=== PATIENT | male | born 1965 | race African-American/Black ===

== ENCOUNTER 2019-03-28 17:51 | Emergency (ER) | payer OTHER, SELFPAY ==
--- NOTE | 2019-03-28 18:06 | ED.GENADULT ---
HPI - General Adult General Chief complaint: Upper Respiratory Infection Stated complaint: cough/sweats Time Seen by Provider: 03/28/19 18:17 Source: patient Mode of arrival: ambulatory Limitations: no limitations History of Present Illness HPI narrative: 54-year-old male patient presents to the [facility] with complaints of a cough for the past 3 to 4 days. Patient states that at times he is short of breath with the coughing. Patient states that the coughing is worse when he lays down at night. Denies any fevers, ear pain, runny nose, stuffy nose, sore throat or chest pain. Patient states that he did not get a flu shot this year. Patient states he has been taking some [id number] Robitussin for symptoms which has helped at times. Patient does admit to being an active smoker. Related Data Allergies Allergy/AdvReac Type Severity Reaction Status Date / Time No Known Allergies Allergy Verified 03/28/19 18:15 Review of Systems Review of Systems: Narrative: CONSTITUTIONAL: Denies fever, chills, or sweats. EYES: Denies visual changes, redness, or discharge. ENT: Denies rhinorrhea, congestion, sore throat, or otalgia. CARDIOVASCULAR: Denies chest pain, palpitations, or edema. RESPIRATORY: Positive cough with dyspnea at time. GASTROINTESTINAL: Denies abdominal pain, nausea, vomiting, or diarrhea. GENITOURINARY: Denies dysuria or hematuria. SKIN: Denies rash or itching. MUSCULOSKELETAL: Denies back pain, joint pain, or myalgia. NEUROLOGIC: Denies headache, numbness, or weakness. PSYCHIATRIC: Denies anxiety or depression. [facility] Social History Social History Gender identity (if verbalized by the patient): Male Comments At the time of my signature I agree with nursing past medical history, surgical, social, and family history. There is no relevant family history pertinent to the presenting complaint. Exam Narrative: Exam Narrative: GENERAL: Well-appearing, well-nourished, and in no acute distress. HEAD: Normocephalic, atraumatic. No tenderness noted to frontal maxillary sinuses on palpation. EYES: PERRLA and EOMI. ENT: Nares clear, no rhinorrhea or epistaxis. Mucous membranes moist. Posterior pharynx with no erythema, tonsillar margin, exudates or lesions present. Bilateral TMs are clear no erythema or foreign bodies in the canal. NECK: Supple. No lymphadenopathy CHEST: Patient has slight rhonchi noted bilateral upper lobes on auscultation. No respiratory distress. Patient able talk in clear complete sentences. Not tripoding noted. HEART: Regular rate and rhythm. No murmur heard. Normal peripheral pulses. ABDOMEN: Soft, nontender, nondistended, normal active bowel sounds. EXTREMITIES: Normal range of motion. No edema. SKIN: Warm, dry, no rash. NEURO: No focal deficits. Alert and oriented x3. Course Vital Signs Vital signs: Vital Signs Temperature 37.2 C 03/28/19 18:20 Pulse Rate 89 03/28/19 18:20 Respiratory Rate 20 03/28/19 18:20 Blood Pressure 185/84 H 03/28/19 18:20 Pulse Oximetry 98 03/28/19 18:20 Temperature 37.2 C 03/28/19 18:20 Pulse Rate 89 03/28/19 18:20 Respiratory Rate 20 03/28/19 18:20 Blood Pressure 185/84 H 03/28/19 18:20 Pulse Oximetry 98 03/28/19 18:20 Vital signs reviewed. Medical Decision Making Differential Diagnosis Differential Diagnosis: Differential diagnosis: Allergic rhinitis, chronic sinusitis, tonsillitis, acute sinusitis, infectious mononucleosis, seasonal influenza, pertussis, diphtheria, meningococcal disease, viral syndrome, viral bronchitis, RSV. Discussed with patient that I think that most likely his symptoms are due to possibly some sinus drainage since his cough is worse when he lays down at night. Discussed with patient he can continue taking [id number] medication I will also prescribe him a daily antihistamine and nasal steroid. Discussed with him that since he is an active smoker a
[2019-03-28 18:20] VITALS: BP 185/84; PULSE 89; RESP 20; TEMP 37.2; O2SAT 98
== END 2019-03-28 18:32 | disposition home or self-care (01) ==
PROVIDERS: Emergency Provider Nurse Practitioner Family
DX: J06.9 Acute upper respiratory infection, unspecified (principal)
CPT/HCPCS: 99203; G0463

== ENCOUNTER 2019-05-04 13:06 | Emergency (ER) | payer OTHER, SELFPAY ==
[2019-05-04 13:19] VITALS: BP 175/90; PULSE 94; RESP 20; TEMP 37.1; O2SAT 100
--- NOTE | 2019-05-04 13:34 | ED.SKABFB ---
HPI - Skin/Abscess/Foreign Bdy General Chief complaint: Skin/Abscess/Foreign Body Stated complaint: pos boil Time Seen by Provider: 05/04/19 13:35 Source: patient and RN notes reviewed Mode of arrival: ambulatory Limitations: no limitations History of Present Illness HPI narrative: 54-year-old male who presents to [facility] care with 10-day history of boil to his back with noted tenderness and drainage from wound to his lower back which he states started draining purulent drainage today.Patient states that he has had a previous boil on his back which was on the upper back area. Patient denies any fevers, chills, or sweats, lesion 0.5cm diameter draining lesion with 1cm surrounding swelling with induration of tissue which is painful to palpation. MD complaint: abscess/boil Onset (ago): day(s) (10) Location: back Severity: moderate Severity scale (1-10): 5 Quality: aching Pain Consistency: constant Relieving factors: none Exacerbating factors: palpation Context: none Associated symptoms: other (tenderness to site) Treatments prior to arrival: other (washed with peroxide and covered with bandaid) Related Data Allergies Allergy/AdvReac Type Severity Reaction Status Date / Time No Known Allergies Allergy Verified 05/04/19 13:18 Review of Systems Review of Systems: Narrative: CONSTITUTIONAL: Denies fever, chills, or sweats. EYES: Denies visual changes, redness, or discharge. ENT: Denies rhinorrhea, congestion, sore throat, or otalgia. CARDIOVASCULAR: Denies chest pain, palpitations, or edema. RESPIRATORY: Denies cough or dyspnea. GASTROINTESTINAL: Denies abdominal pain, nausea, vomiting, or diarrhea. GENITOURINARY: Denies dysuria or hematuria. SKIN: boil to lower back which is draining purulent drainage with indurated tissue MUSCULOSKELETAL: Denies back pain, joint pain, or myalgia. NEUROLOGIC: Denies headache, numbness, or weakness. PSYCHIATRIC: Denies anxiety or depression. All systems reviewed & are unremarkable except as noted in HPI and below PMFSH Past Medical History Medical History (Updated 05/04/19 @ 14:28 by Delaney Gagnon NP) Boil Hypertension Social History Social History (Updated 05/04/19 @ 14:33 by Delaney Gagnon NP) Smoking status: Smoker, status unknown Living arrangements: with family Gender identity (if verbalized by the patient): Male Comments At time of signature, agree with nursing past medical, social history. There is no relevant family history pertinent to the presenting complaint Exam Narrative: Exam Narrative: GENERAL: Well-appearing, well-nourished, and in no acute distress. HEAD: Normocephalic, atraumatic. EYES: PERRLA and EOMI. ENT: Nares clear, no rhinorrhea or epistaxis. Mucous membranes moist. NECK: Supple.no lymphadenopathy CHEST: Clear to auscultation. No respiratory distress.SAO2 100% on room air HEART: Regular rate and rhythm. No murmur heard. Normal peripheral pulses. ABDOMEN: Soft, non tender, non distended, normal active bowel sounds. EXTREMITIES: Normal range of motion. No edema. SKIN: Warm, 0.5cm purulent draining lesion with 1cm swollen indurated tissue around draining center NEURO: No focal deficits. Alert and oriented x3. Course Vital Signs Vital signs: Vital Signs Temperature 37.1 C 05/04/19 13:19 Pulse Rate 94 05/04/19 13:19 Respiratory Rate 20 05/04/19 13:19 Blood Pressure 175/90 H 05/04/19 13:19 Pulse Oximetry 100 05/04/19 13:19 Temperature 37.1 C 05/04/19 13:19 Pulse Rate 94 05/04/19 13:19 Respiratory Rate 20 05/04/19 13:19 Blood Pressure 175/90 H 05/04/19 13:19 Pulse Oximetry 100 05/04/19 13:19 MDM - Skin/Abscess/Foreign Bdy Differential Diagnosis Differential diagnosis: Likely abscess of skin or subcutaneous tissue, cellulitis, contact dermatitis and other (purulent wound drainage) Medical Records Attestation: I reviewed the patient's medical records. Critical Care Time Critical Care Time Critical Care [place]
[2019-05-04 14:25] VITALS: BP 166/88
== END 2019-05-04 14:08 | disposition home or self-care (01) ==
PROVIDERS: Emergency Provider Registered Nurse
DX: L02.212 Cutaneous abscess of back [any part, except buttock and flank] (principal); I10 Essential (primary) hypertension
CPT/HCPCS: 99213; G0463

== ENCOUNTER 2022-07-18 15:24 | Emergency (ER) | payer OTHER, SELFPAY ==
[2022-07-18 15:44] VITALS: BP 131/77; PULSE 93; RESP 18; TEMP 36.2; O2SAT 99
--- NOTE | 2022-07-18 17:00 | ED.SKABFB ---
HPI - Skin/Abscess/Foreign Bdy General Chief complaint: Skin/Abscess/Foreign Body Stated complaint: abscess Time Seen by Provider: 07/18/22 16:43 History of Present Illness HPI narrative: 57-year-old male reports for evaluation of a lump to his right mandible x3 months. Patient states he noticed an ingrown hair in that area approximately 3 months ago, pulled it and since then he developed a lump. States it is slowly gotten bigger which is what brought him here today. Denies warmth, pain, fever, bodyaches, chills, erythema. Related Data Allergies Allergy/AdvReac Type Severity Reaction Status Date / Time No Known Allergies Allergy Verified 05/28/19 13:27 Review of Systems Review of Systems: CONSTITUTIONAL: Denies fever, chills EYES: Denies visual changes, redness, or discharge. ENT: Denies rhinorrhea, congestion, sore throat, or otalgia. CARDIOVASCULAR: Denies chest pain, palpitations, or edema. RESPIRATORY: Denies cough or dyspnea. GASTROINTESTINAL: Denies abdominal pain, nausea, vomiting, or diarrhea. GENITOURINARY: Denies dysuria or hematuria. SKIN: See HPI MUSCULOSKELETAL: Denies back pain, joint pain, or myalgia. NEUROLOGIC: Denies headache, numbness, dizziness, or weakness. PSYCHIATRIC: Denies anxiety or depression. [facility], [facility] Past Medical History Medical History Boil Hypertension Social History Social History Smoking status: Smoker, status unknown Living arrangements: with family Gender identity (if verbalized by the patient): Male Exam Narrative: GENERAL: Well-appearing, in no acute distress. HEAD: Normocephalic EYES: PERRLA CHEST: No respiratory distress. Clear to auscultation, no adventitious breath sounds. HEART: Regular rate and rhythm. No murmur heard. Normal peripheral pulses. EXTREMITIES: Normal range of motion. No edema. SKIN: 1 cm mobile cyst to right maxilla. No tenderness, erythema or warmth. NEURO: No focal deficits. Alert and oriented x3. PSYCH: Normal mood and affect. Course Vital Signs Vital signs: Vital Signs Temperature 97.2 F L 07/18/22 15:44 Pulse Rate 93 07/18/22 15:44 Respiratory Rate 18 07/18/22 15:44 Blood Pressure 131/77 07/18/22 15:44 Pulse Oximetry 99 07/18/22 15:44 Oxygen Delivery Room Air 07/18/22 15:44 Temperature 97.2 F L 07/18/22 15:44 Pulse Rate 93 07/18/22 15:44 Respiratory Rate 18 07/18/22 15:44 Blood Pressure 131/77 07/18/22 15:44 Pulse Oximetry 99 07/18/22 15:44 Oxygen Delivery Room Air 07/18/22 15:44 MDM - Skin/Abscess/Foreign Bdy MDM Narrative Medical decision making narrative: 57-year-old male reports for evaluation of a 1 cm mobile cyst to his right maxilla without erythema, warmth, drainage x3 months. Vital stable, he is afebrile. Bedside ultrasound obtained to evaluate lipoma versus cyst which reveals fluid in the cavity. Advised patient that I do not want to I&D it while in the ED as there is no signs of infection and it is on his face. Encouraged him to follow-up with plastic surgery for removal. Plastics referral provided. Strict ED return precautions discussed. Patient agrees with plan verbalized understanding. Discharged in stable condition. Discharge Plan Discharge Clinical Impression: Cyst of face Patient Disposition: Home, Self-Care Condition: Stable Instructions: Antibiotic Form, Cyst (ED) Additional Instructions: Your evaluated in the emergency department for a cyst on her face. Please follow-up with plastic surgery for further evaluation and removal. Return to the emergency department if you experience increased pain, warmth, redness, fever as these are concerning signs of infection. Prescriptions: No Action mupirocin 2 % ointment 1 applic TOPICAL TID Qty: 30 0RF sulfamethoxazole-trimethoprim [Bactrim DS] 800-160 mg tablet 1 tablet PO
== END 2022-07-18 17:22 | disposition home or self-care (01) ==
PROVIDERS: Emergency Provider Physician Assistant
DX: L72.9 Follicular cyst of the skin and subcutaneous tissue, unspecified (principal)
CPT/HCPCS: 99281

== ENCOUNTER 2022-09-07 09:22 | Emergency (ER) | payer OTHER, SELFPAY ==
[2022-09-07 09:40] VITALS: BP 183/89; PULSE 92; RESP 16; TEMP 36.1; O2SAT 100
--- NOTE | 2022-09-07 10:33 | ED.GENADULT ---
HPI - General Adult General Chief complaint: Dental/Oral Stated complaint: cyst on face, dental pain Time Seen by Provider: 09/07/22 09:44 History of Present Illness HPI narrative: Rex Yang is a 57 y/o male who presents today for a right upper dental infection. He states he was here about a month ago for the same issue and was referred to a plastic surgeon then to have an area on his face opened and drained that is adjacent to his dental infection. He states that he missed his appointment but did get another appointment and was instructed to come to the ED to get started on antibiotics. He does not wish for the area on his face to be drained here today, he would like to follow up with plastics as scheduled. He would like to get started on antibiotics. Denies fever/chills/difficulty swallowing/shortness of breath/chest pain. Related Data Allergies Allergy/AdvReac Type Severity Reaction Status Date / Time No Known Allergies Allergy Verified 09/07/22 09:42 Review of Systems Review of Systems: CONSTITUTIONAL: Denies fever, chills, or sweats. EYES: Denies visual changes, redness, or discharge. ENT: Denies rhinorrhea, congestion, sore throat,complains of right upper toothache and cyst/abscess to right upper cheek. CARDIOVASCULAR: Denies chest pain, palpitations, or edema. RESPIRATORY: Denies cough or dyspnea. GASTROINTESTINAL: Denies abdominal pain, nausea, vomiting, or diarrhea. GENITOURINARY: Denies dysuria or hematuria. SKIN: Denies rash or itching. MUSCULOSKELETAL: Denies back pain, joint pain, or myalgia. NEUROLOGIC: Denies headache, numbness, dizziness, or weakness. PSYCHIATRIC: Denies anxiety or depression. PMFSH Past Medical History Medical History Boil Hypertension Social History Social History Smoking status: Smoker, status unknown Living arrangements: with family Gender identity (if verbalized by the patient): Male Exam Narrative: GENERAL: Well-appearing, well-nourished, and in no acute distress. HEAD: Normocephalic, atraumatic. EYES: PERRLA and EOMI. ENT: Nares clear, no rhinorrhea or epistaxis. Mucous membranes moist. Oropharynx without tonsillar hypertrophy exudate or other lesions. Right upper cheek noted to have swelling/ induration that he is following up with plastics to have removed. NECK: Supple. No adenopathy or masses. No carotid bruits or JVD CHEST: Clear to auscultation. No respiratory distress. No wheezes rales or rhonchi HEART: Regular rate and rhythm. No murmur heard. Normal peripheral pulses. ABDOMEN: Soft, nontender, nondistended, normal active bowel sounds. EXTREMITIES: Normal range of motion. No edema. SKIN: Warm, dry, no rash. NEURO: No focal deficits. Alert and oriented x3. PSYCH: Normal mood and affect. Course Vital Signs Vital signs: Vital Signs Temperature 36.1 C L 09/07/22 09:40 Pulse Rate 92 09/07/22 09:40 Respiratory Rate 16 09/07/22 09:40 Blood Pressure 183/89 H 09/07/22 09:40 Pulse Oximetry 100 09/07/22 09:40 Oxygen Delivery Room Air 09/07/22 09:40 Temperature 36.1 C L 09/07/22 09:40 Pulse Rate 92 09/07/22 09:40 Respiratory Rate 16 09/07/22 09:40 Blood Pressure 183/89 H 09/07/22 09:40 Pulse Oximetry 100 09/07/22 09:40 Oxygen Delivery Room Air 09/07/22 09:40 Medical Decision Making MDM Narrative Medical decision making narrative: Area to right upper cheek is noted to be swollen/indurated no active drainage. Right upper tooth decay noted on exam with out any palpable fluctuance noted near tooth to be drained Patient is not exhibiting any systemic symptoms of infection. He is requesting to be started on antibiotics before his follow up with plastics. Differential Diagnosis Differential Diagnosis: dental infection/ dental abscess/ facial abscess/ cellulitis. Medical Records Medical records reviewed:
[2022-09-07] MEDS: LIDOCAINE HCL 2% VISC SOLN 15 ML UDC PO (10:57)
[2022-09-07] MEDS: HYDROcodone/acetaminophen (*CRX) 5-325 MG TABLET 1 TAB PO (10:57)
[2022-09-07] MEDS: PENICILLIN V POTASSIUM 250 MG TABLET 500 MG PO (10:58)
[2022-09-07] MEDS: KETOROLAC 30 MG/ML VIAL (*BKC) IM (10:58)
== END 2022-09-07 11:06 | disposition home or self-care (01) ==
PROVIDERS: Emergency Provider Nurse Practitioner Family; PCP Physician Assistant
DX: K04.7 Periapical abscess without sinus (principal); I10 Essential (primary) hypertension
CPT/HCPCS: 96372; 99283; A9270; J1885

== ENCOUNTER 2022-09-08 09:27 | Emergency (ER) | payer OTHER, SELFPAY ==
[2022-09-08 09:28] VITALS: BP 179/80; PULSE 94; RESP 18; TEMP 36.7; O2SAT 100
[2022-09-08] MEDS: MORPHINE SULFATE (*CRX) 4 MG/ML INJ IV PUSH (10:07)
--- NOTE | 2022-09-08 10:32 | ED.GENADULT ---
HPI - General Adult General Chief complaint: Skin/Abscess/Foreign Body Stated complaint: facial swelling Time Seen by Provider: 09/08/22 09:37 History of Present Illness HPI narrative: Rex Yang is a 57 y/o male who presents today for the third time to the ED for this same complaint of right facial cyst/ abscess area. He was evaluated here yesterday and requested to be on antibiotics and did not want to have the area cut open as he had an appointment with plastics to have it removed. Today pt is requesting to have the area cut open to help it start draining. He started the antibiotics that he was given but he feels like it is still getting more swollen. He denies any fever/chills/ systemic symptoms. Related Data Allergies Allergy/AdvReac Type Severity Reaction Status Date / Time No Known Allergies Allergy Verified 09/07/22 09:42 Review of Systems Review of Systems: CONSTITUTIONAL: Denies fever, chills, or sweats. EYES: Denies visual changes, redness, or discharge. ENT: Denies rhinorrhea, congestion, sore throat, or otalgia. CARDIOVASCULAR: Denies chest pain, palpitations, or edema. RESPIRATORY: Denies cough or dyspnea. GASTROINTESTINAL: Denies abdominal pain, nausea, vomiting, or diarrhea. GENITOURINARY: Denies dysuria or hematuria. SKIN: Right facial cyst that has been ongoing for about a month MUSCULOSKELETAL: Denies back pain, joint pain, or myalgia. NEUROLOGIC: Denies headache, numbness, dizziness, or weakness. PSYCHIATRIC: Denies anxiety or depression. PMFSH Past Medical History Medical History Boil Hypertension Social History Social History Smoking status: Smoker, status unknown Living arrangements: with family Gender identity (if verbalized by the patient): Male Exam Narrative: GENERAL: Well-appearing, well-nourished, and in no acute distress. HEAD: Normocephalic, atraumatic. EYES: PERRLA and EOMI. ENT: Nares clear, no rhinorrhea or epistaxis. Mucous membranes moist. Oropharynx without tonsillar hypertrophy exudate or other lesions. Bilateral TMs pearly diamond nonbulging NECK: Supple. No adenopathy or masses. No carotid bruits or JVD CHEST: Clear to auscultation. No respiratory distress. No wheezes rales or rhonchi HEART: Regular rate and rhythm. No murmur heard. Normal peripheral pulses. ABDOMEN: Soft, nontender, nondistended, normal active bowel sounds. EXTREMITIES: Normal range of motion. No edema. SKIN: moderate amount of swelling to right side of face surrounding cellulitis of an abscess to right upper cheek NEURO: No focal deficits. Alert and oriented x3. PSYCH: Normal mood and affect. Course Vital Signs Vital signs: Vital Signs Temperature 36.7 C 09/08/22 09:28 Pulse Rate 94 09/08/22 09:28 Respiratory Rate 18 09/08/22 09:28 Blood Pressure 179/80 H 09/08/22 09:28 Pulse Oximetry 100 09/08/22 09:28 Oxygen Delivery Room Air 09/08/22 09:28 Temperature 36.7 C 09/08/22 09:28 Pulse Rate 94 09/08/22 09:28 Respiratory Rate 18 09/08/22 09:28 Blood Pressure 179/80 H 09/08/22 09:28 Pulse Oximetry 100 09/08/22 09:28 Oxygen Delivery Room Air 09/08/22 09:28 Procedures Abscess I/D face: Date of Incision: 09/08/22 Time of Incision: 10:50 Side (if applicable): right Sedation/analgesia: other (Morphine IV before procedure ) Local Anesthetic: lidocaine 1% Amount of anesthesia used (mL): 5 Technique: incised with #11 blade Irrigation: Yes Packing used?: none I&D Results: Pus and Blood Abcess I&D Additional Comments: Moderate amount of pus removed from abscess along with some blood Patient tolerated procedure well and area is noticeably smaller in size after procedure. Medical Decision Making MDM Narrative Medical decision making narrative: Patient consenting an
== END 2022-09-08 11:28 | disposition home or self-care (01) ==
PROVIDERS: Emergency Provider Nurse Practitioner Family; PCP Physician Assistant
DX: L02.01 Cutaneous abscess of face (principal); L03.211 Cellulitis of face; I10 Essential (primary) hypertension
CPT/HCPCS: 10060; 87070; 87205; 96365; 96375; 99284; J0696; J2270